=== PATIENT | female | born 1965 | race Two or more races ===

== ENCOUNTER → 2019-02-01 | Emergency (ER) | payer MEDICAID ==
[~2019-02-01] VITALS: Ht 162.6 cm; Wt 78.0 kg
[~2019-02-01] MED LIST: IBUPROFEN600 MG ORAL
--- NOTE | 2019-02-01 18:09 | NUR ---
ED Nurse Note: PT WALKED IN DUE TO BURNING SENSATION ON HER LEFT UNDERARM THAT RADIATES TO HER LEFT BREAST X 5 DAYS. NO BREAST DISCHARGE OR DIMPLING. PT ALREADY HAD A MAMMOGRAM AND IS WAITING FOR RESULTS. AAO X4, AMBULATORY. DAUGHTER AT THE BED SIDE.
[2019-02-01 18:20] VITALS: BP 156/70
--- NOTE | 2019-02-01 18:28 | Emergency Room Report ---
History of Present Illness General Chief Complaint: Pain Source: Patient Present Illness HPI Patient presents with complaints of a burning sensation to the left upper pectoralis region reports that symptoms ongoing for the past 3 to 4 days Denies any headache denies any chest pain or shortness of breath denies any other breast pain Denies any arm weakness or heaviness discomfort is fairly well localized To the upper outer pectoralis region Denies any other fall or trauma After further questioning patient now reports that she has had a mammogram 10 days ago and pending results patient also reports getting an immunization injection left deltoid region 2 days ago and having some discomfort soon after that Allergies: Coded Allergies: No Known Allergies (Unverified , 02/01/19) Patient History Past Medical History: see triage record Pertinent Family History: none Now: No Reviewed Nursing Documentation: PMH: Agreed; PSxH: Agreed Nursing Documentation-PMH Past Medical History: No History, Except For Hx Hypertension: Yes Review of Systems All Other Systems: negative except mentioned in HPI Physical Exam Vital Signs Date Time Temp Pulse Resp B/P (MAP) Pulse Ox O2 Delivery O2 Flow Rate FiO2 02/01/19 17:59 98.1 96 20 165/81 (109) 96 Room Air Sp02 EP Interpretation: reviewed, normal General Appearance: well appearing, no apparent distress Head: normocephalic, atraumatic Eyes: bilateral eye PERRL, bilateral eye EOMI ENT: hearing grossly normal, normal pharynx, TMs + canals normal, uvula midline Neck: full range of motion, supple, no meningismus, no bony tend Respiratory: lungs clear, normal breath sounds, no rhonchi, no respiratory distress, no retraction, no accessory muscle use Cardiovascular #1: normal peripheral pulses, regular rate, rhythm, no edema, no gallop, no JVD, no murmur Gastrointestinal: normal bowel sounds, non tender, soft, no mass, no organomegaly, non-distended, no guarding, no hernia, no pulsatile mass, no rebound Genitourinary: no CVA tenderness Musculoskeletal: normal inspection Neurologic: oriented x3, responsive, nutrition services worker III-XII nml as tested, motor strength/ tone normal, sensory intact Psychiatric: mood/affect normal Skin: other - No obvious palpable lymph nodes, no obvious rash, patient has fairly well specific pinpoint discomfort with palpating the upper lateral outer aspect of the pectoralis muscle Lymphatic: normal inspection, no adenopathy Medical Decision Making Diagnostic Impression: Primary Impression: Myalgia Additional Impression: vaccine injection ER Course Initially after initial discussion with the patient we discussed possible mammogram and other imaging for further evaluation At that point the patient's daughter reports that she just had a mammogram And was pending follow-up of the results Also reports having a recent vaccination in the deltoid area on the left upper arm And soon after that having this discomfort to the upper outer chest area No obvious dermatomal lesions are seen I feel patient would benefit best from following up on the mammogram studies that were already performed Chest x-ray was obtained for further evaluation which was negative patient is stable for close outpatient follow-up Chest X-Ray Diagnostic Results Chest X-Ray Diagnostic Results : Chest X-Ray Ordered: Yes # of Views/Limited/Complete: 1 View Indication: Chest Pain EP Interpretation: Yes Interpretation: no consolidation, no effusion, no pneumothorax Impression: No acute disease Electronically Signed by: Hortencia Hamlin DO Last Vital Signs Date Time Temp Pulse Resp B/P (MAP) Pulse Ox O2 Delivery O2 Flow Rate FiO2 02/01/19 17:59 98.1 96 20 165/81 (109) 96 Room Air Status: improved Disposition: HOME, SELF-CARE Condition: Improved Scripts Ibuprofen* (MOTRIN*) 600 Mg Tablet 600 MG ORAL Q8H PRN for For Pain, #20 TAB 0 Refills Prov: Hortencia Hamlin DO 02/01/19 Additional Instructions: Patient is provided with the discharge instructions notified to follow up with primary doctor in the next 2-3 days otherwise return to the er with any worsening symptoms. Please note that this report is being documented using [employer] technology. This can lead to erroneous entry secondary to incorrect interpretation by the dictating instrument. Hortencia Hamlin DO Feb 01, 2019 18:28
[2019-02-01 18:51] VITALS: BP 158/79
--- NOTE | 2019-02-01 18:51 | NUR ---
ER DISCHARGE NOTE: Patient is cleared to be discharged per ERMD, pt is aox4, on room air, with stable vital signs. pt was given dc and prescription instructions, pt was able to verbalize understanding, pt id band removed without complications. pt is able to ambulate with steady gait. pt took all belongings and left with her daughter.
--- NOTE | 2019-02-02 11:05 | Diagnostic Imaging Report ---
Indication: Chest pain Comparison: None A single view chest radiograph was obtained. Findings: No definite infiltrate or pulmonary vascular congestion identified. The heart is enlarged. The bones are unremarkable. Impression: No acute disease
== END | disposition home or self-care (01) ==
LOC: EMR 19:27
DX: M79.10 Myalgia, unspecified site (principal); I10 Essential (primary) hypertension
CPT/HCPCS: 71045; 99283